=== PATIENT | male | born 1980 | race Caucasian/White ===

== ENCOUNTER 2025-09-12 09:14 | Emergency (ER) | payer BC, OTHER ==
[2025-09-12 09:20] LABS: BASOPHILS ABSOLUTE AUTO 0.05 K/uL (0.00-0.20); BASOPHILS PERCENT AUTO 0.9 % (0.0-2.0); EOSINOPHILS ABSOLUTE AUTO 0.12 K/uL (0.00-0.50); EOSINOPHILS PERCENT AUTO 2.1 % (0.0-5.0); IMMATURE GRAN ABSOLUTE AUTO 0.02 10^3/uL (0.00-0.04); IMMATURE GRAN PERCENT AUTO 0.4 % (0.0-0.4); LYMPHOCYTES ABSOLUTE AUTO 2.14 K/uL (0.50-3.50); LYMPHOCYTES PERCENT AUTO 37.9 % (10.0-50.0); MONOCYTES ABSOLUTE AUTO 0.54 K/uL (0.00-1.00); MONOCYTES PERCENT AUTO 9.6 % (2.0-14.0); NEUTROPHILS ABSOLUTE AUTO 2.78 K/uL (1.40-7.00); NEUTROPHILS PERCENT AUTO 49.1 % (45.0-80.0); PLATELET COUNT,PLT 246 K/uL (150-350); RED BLOOD CELL COUNT 5.56 M/uL (4.33-5.41); RED CELL DISTRIBUTION WIDTH 12.3 % (11.2-14.1); WHITE BLOOD CELL COUNT,WBC 5.7 K/uL (4.0-10.2)
[2025-09-12] MEDS ORDERED: Sodium Chloride 0.9% 10 ML Syringe FLUSH PRN (09:21)
[2025-09-12 09:46] LABS: INR 1.0 (0.9-1.1)
[2025-09-12 09:50] LABS: ALANINE AMINOTRANSFERASE,ALT 57.0 U/L (12-78); ASPARTATE AMNIOTRANSFERASE,AST 24.0 U/L (15-37); BILIRUBIN TOTAL 0.4 mg/dL (0.2-1.0); BLOOD UREA NITROGEN,BUN 19.0 mg/dL (7-18); CARBON DIOXIDE,CO2 25.0 mmol/L (21.0-32.0); CHLORIDE,CL 106.0 mmol/L (98-107); CREATININE 1.17 mg/dL (0.51-1.17); EST CRCL DRUG DOSING (CG) 86.59 mL/min; GLUCOSE RANDOM 136.0 mg/dL (70-99); POTASSIUM,K 4.2 mmol/L (3.5-5.1); PROTEIN TOTAL,TP 8.0 g/dL (6.4-8.2); SODIUM,NA 142.0 mmol/L (136-145)
[2025-09-12 09:55] LABS: ESTIMATED GFR 78.0 mL/min (>=60); LACTIC ACID 3.0 mmol/L (0.4-2.0)
[2025-09-12 10:13] LABS: PTT,PARTIAL THROMBOPLSTIN TIME 22.7 SEC (23.8-34.4)
[2025-09-12 12:43] VITALS: BP 135/83; PULSE 91
== END 2025-09-12 11:41 | disposition home or self-care (01) ==
LOC: LL.ED 09:14
DX: R07.9 Chest pain, unspecified (principal)
CPT/HCPCS: 36415; 71045; 80053; 83605; 84484; 85025; 85610; 85730; 87428-QW; 93005; 93010; 99284; 99285; A9270-GY; J7030